=== PATIENT | female | born 1955 ===

== ENCOUNTER 2021-05-11 08:20 | Outpatient (CLI) | payer MEDICAID ==
--- NOTE | 2021-05-11 10:58 | Fluoroscopy Report ---
MODIFIED BARIUM SWALLOW INDICATION: DYSPHAGIA TECHNIQUE: Swallowing was evaluated in the lateral position under direct fluoroscopy. FINDINGS: The patient was evaluated with thin liquid, puree, semisolid and solid consistencies. Deglutition was normal. No evidence for penetration or aspiration. IMPRESSION: Unremarkable exam. Fluoroscopic time: 1.7 minutes Number of fluoroscopic images: 2 Signer Name: Tereso Haro Jr, MD Signed: 05/11/2021 10:53 AM Workstation Name: [id number]
== END 2021-05-11 08:21 | disposition home or self-care (01) ==
LOC: PT 08:20
PROVIDERS: ATTEND Family Medicine
DX: R13.10 Dysphagia, unspecified (principal)
CPT/HCPCS: 74230